=== PATIENT | female | born 1975 | race Caucasian/White ===

== ENCOUNTER 2017-08-30 16:45 | Emergency (ER) | payer MEDICARE, MEDICAID ==
[~2017-08-30] VITALS: Ht 154.9 cm; Wt 55.0 kg
[2017-08-30] MEDS ORDERED: FLUO20CA8 PO (17:06)
[2017-08-30] MEDS ORDERED: ZIPR80CA3 PO (17:06)
[2017-08-30] MEDS ORDERED: CLON1PAT7 TD (17:06)
[2017-08-30] MEDS ORDERED: MULT-516 PO (17:06)
[2017-08-30] MEDS ORDERED: CHOL10003 PO (17:06)
[2017-08-30] MEDS ORDERED: DIVA250T6 PO (17:06)
[2017-08-30] MEDS ORDERED: LORA1TAB PO (17:06)
[2017-08-30 17:50] LABS: BASOPHILS # (AUTO) 0.06 x10^3/uL (0-0.1); BASOPHILS % (AUTO) 1 % (0-1); EOSINOPHILS # (AUTO) 0.06 x10^3/uL (0-0.4); EOSINOPHILS % (AUTO) 1 % (1-7); LYMPHOCYTES % (AUTO) 28 % (22-44); MD NO; MEAN CORPUSCULAR HEMOGLOBIN 30.9 pg (27.0-34.8); MEAN CORPUSCULAR HGB CONC 33.8 g/dL (32.4-35.8); MEAN CORPUSCULAR VOLUME 91.4 fL (80-100); MONOCYTES # (AUTO) 0.82 x10^3/uL (0.2-0.8); MONOCYTES % (AUTO) 11 % (2-9); NEUTROPHILS # (AUTO) 4.33 x10^3/uL (1.8-6.8); NEUTROPHILS % (AUTO) 60 % (42-75); PLATELET COUNT 274 x10^3/uL (130-400); RED BLOOD COUNT 3.56 x10^6/uL (3.82-5.3); RED CELL DISTRIBUTION WIDTH 12.9 % (9.6-15.2)
[2017-08-30] MEDS ORDERED: LORazepam 2 MG/ML, 1ML ONE (17:51)
[2017-08-30 18:00] LABS: ANION GAP 5 mmol/L (5-15); CALCIUM 7.6 mg/dL (8.5-10.1); CHLORIDE 108 mmol/L (98-107); CREATININE 0.48 mg/dL (0.55-1.02)
[2017-08-30] MEDS ORDERED: LORazepam 2 MG/ML, 1ML IM ONE (18:00)
[2017-08-30 18:02] LABS: INTERNATIONAL NORMALIZED RATIO 0.95 (0.93-1.1); PROTHROMBIN TIME 9.8 Seconds (9.6-11.5)
[2017-08-30] MEDS ORDERED: ZIPRASIDONE 20 MG INJ IM ONE ×2 (18:59→19:00)
[2017-08-30 21:40] VITALS: BP 118/76
== END 2017-08-30 21:42 | disposition home or self-care (01) ==
LOC: ED 21:36
DX: S42.032A Displaced fracture of lateral end of left clavicle, initial encounter for closed fracture (principal); I10 Essential (primary) hypertension; X58.XXXA Exposure to other specified factors, initial encounter; Y99.8 Other external cause status; Y93.89 Activity, other specified; Y92.129 Unspecified place in nursing home as the place of occurrence of the external cause
CPT/HCPCS: 36415; 71045; 73030; 80048; 85025; 85610; 85730; 96372; 99285; J2060; J3486